=== PATIENT | male | born 1995 | race African-American/Black ===

== ENCOUNTER 2023-06-18 19:34 | Emergency (ER) | payer MEDICAID, SELFPAY ==
[2023-06-18 19:39] VITALS: BP 151/89; PULSE 63; RESP 18; TEMP 36.6; O2SAT 99
[2023-06-18 19:48] VITALS: BP 130/92; PULSE 70; RESP 17; TEMP 36.6; O2SAT 99; BMI 25.0
--- NOTE | 2023-06-18 20:01 | ED_ITS ---
HPI - General Adult General Chief complaint: Headache Stated complaint: BILATERAL EYE PAIN HEADACHE Time Seen by Provider: 06/18/23 19:36 Source: patient Mode of arrival: ambulatory Limitations: no limitations History of Present Illness HPI narrative: Patient with schiza affective disorder with hallucinations feel electricity like symptoms in both eyes for last few months no nausea no vomiting no headache feels slight blurred vision Related Data Allergies Allergy/AdvReac Type Severity Reaction Status Date / Time No Known Allergies Allergy Verified 06/18/23 19:48 Review of Systems Review of Systems: Yes all other systems are reviewed and are negative [facility] Social History Social History Advance Directives: No Advance Directives Information Provided: No Physical Exam ED Vital Signs: Vital Signs - 24 hr 06/18/23 19:39 06/18/23 19:48 Temperature 97.8 F 97.9 F Pulse Rate 63 70 Respiratory Rate 18 17 Blood Pressure 151/89 H 130/92 H Pulse Oximetry 99 99 Oxygen Delivery Method Room Air Room Air BMI result Body Mass Index 25.0 Appearance: Alert. Oriented X3. No acute distress. Eyes: PERRLA, No Nystagmus visual acuity 20/30 bilaterally fundus normal bilateral ENT: Pharynx normal. Oral Mucosa moist Neck: Normal inspection. Neck supple. CVS: Normal heart rate and rhythm. Pulses normal. Respiratory: No respiratory distress. Equal air entry bilateral, no wheezing/rales/rhonchi Abdomen: Soft and nontender. Bowel sounds are present, no mass palpable, no CVA tenderness Skin: Skin warm and dry. Normal skin color. Normal skin turgor. Extremities: No lower extremity edema. No calf tenderness Neuro: Oriented X 3. No motor deficit. No sensory deficit.No cerebellar signs , cranial nerves II-XII intact Medical Decision Making Medical Decision Making MDM Narrative: Patient has schizoaffective disorder with visual symptoms which chronic visual acuity 20/30 both eyes discharge patient home advised to continue his medications follow up with therapist Discharge Plan Discharge Clinical Impression: Visual hallucinations Patient Disposition: Home, Self-Care Instructions: Hallucinations (ED) Additional Instructions: Taking medication as given to PCP/psychiatrist and follow-up with them for further management
--- NOTE | 2023-06-18 22:06 | PC.NURSE ---
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 admission discharge rn aware.
== END 2023-06-18 21:32 | disposition home or self-care (01) ==
PROVIDERS: Emergency Provider Internal Medicine; PCP Nurse Practitioner Family
DX: R44.1 Visual hallucinations (principal); F25.9 Schizoaffective disorder, unspecified
CPT/HCPCS: 99283